=== PATIENT | female | born 1960 | race African-American/Black ===

== ENCOUNTER 2019-04-21 17:05 | Emergency (ER) | payer OTHER ==
[~2019-04-21] VITALS: Ht 172.7 cm; Wt 92.5 kg
[~2019-04-21 17:05] MED LIST: ACET-58 PO; METF500T PO; SIMV20TA1 PO; ZOLP5TAB1 PO
[2019-04-21 17:13] VITALS: BP 125/84
--- NOTE | 2019-04-21 17:13 | NUR ---
PT AMBULATED TO BED WITH MOTHER
--- NOTE | 2019-04-21 17:38 | NUR ---
PT STATED THAT SHE DOES NOT WANT TO BE SEEN MY ER MD. PT LWBS AT THIS TIME.
== END 2019-04-21 17:38 | disposition left against medical advice (07) ==
LOC: MED 17:05
DX: M25.561 Pain in right knee (principal); Z53.21 Procedure and treatment not carried out due to patient leaving prior to being seen by health care provider

== ENCOUNTER 2019-05-04 00:15 | Emergency (ER) | payer OTHER ==
[~2019-05-04] VITALS: Ht 172.7 cm; Wt 92.5 kg
[2019-05-04 00:21] VITALS: BP 159/78
--- NOTE | 2019-05-04 00:21 | NUR ---
TO BED # 02 AMBULATORY
--- NOTE | 2019-05-04 01:02 | NUR ---
58 Y/O F PRESENTS TO ER C/O LEFT LEG PAIN X4 DAYS. PAIN STARTS IN LEFT KNEE AND RADIATES TO LEFT HIP. PAIN LEVEL 10/10, PRESSURE PAIN. PT TOOK GABAPENTIN 300MG 2PM AND TYLENOL AT 7 PM, WITHOUT ANY RELIEF. HOB ELEVATED, BED IN LOWEST POSITION, BED RAIL UP X1. WAITING FOR ERMD TO EVALUATE PT. ALLERGIES: NKA MED HX: ASTHMA
[2019-05-04] MEDS ORDERED: KETOROLAC 60 MG/2 ML VIAL IM ONE (01:10)
[2019-05-04] MEDS ORDERED: DEXAMETHASONE 10 MG/ML VIAL IM ONE (01:10)
--- NOTE | 2019-05-04 01:55 | NUR ---
REPORTS IMPROVED PAIN 7/10 FROM 10/10 WHICH IS TOLERABLE AT THIS TIME. EXPLAINED TO PT THAT SHE WILL BE SENT HOME WITH RX FOR PAIN.
[2019-05-04 02:00] VITALS: BP 148/83
--- NOTE | 2019-05-04 02:00 | NUR ---
Patient discharged with v/s stable. Written and verbal after care instructions given and explained. Patient alert, oriented and verbalized understanding of instructions. Ambulatory with steady gait. All questions addressed prior to discharge. ID band removed. Patient advised to follow up with PMD. Rx of Tramadol, Motrin and Medrol given. Patient educated on indication of medication including possible reaction and side effects. Opportunity to ask questions provided and answered.
== END 2019-05-04 02:00 | disposition home or self-care (01) ==
LOC: MED 00:15
DX: M54.42 Lumbago with sciatica, left side (principal); J44.9 Chronic obstructive pulmonary disease, unspecified; E11.9 Type 2 diabetes mellitus without complications; Z79.899 Other long term (current) drug therapy
CPT/HCPCS: 96372; 99283; J1100; J1885; 99284

== ENCOUNTER 2019-05-22 08:20 | Emergency (ER) | payer OTHER ==
[~2019-05-22] VITALS: Ht 172.7 cm; Wt 88.5 kg
[2019-05-22 08:25] VITALS: BP 137/88
--- NOTE | 2019-05-22 09:15 | NUR ---
Dr. Moreno is evaluating the patient at bedside.
[2019-05-22] MEDS: NACL 0.9% 1,000 ML IV ONE (09:32)
[2019-05-22] MEDS: ONDANSETRON 4 MG/2 ML VIAL IVP ONE (09:37)
[2019-05-22] MEDS: LOPERAMIDE 2 MG CAP PO ONE (09:37)
[2019-05-22] MEDS: KETOROLAC 30 MG/ML VIAL IVP ONE (09:37)
[2019-05-22 09:52] LABS: BASOPHILS % (AUTO) 0.1 % (0.0-2.0); EOSINOPHILS % (AUTO) 0.6 % (0.0-4.0); HEMATOCRIT 42.9 % (36-48); HEMOGLOBIN 14.1 g/dL (12.0-16.0); LYMPHOCYTES # (AUTO) 1.9 K/uL (2.5-16.5); LYMPHOCYTES % (AUTO) 30.1 % (20.5-51.1); MEAN CORPUSCULAR HEMOGLOBIN 27 pg (27-31); MEAN CORPUSCULAR HGB CONC 33 g/dL (33-37); MEAN CORPUSCULAR VOLUME 83.4 fL (80-94); MONOCYTES # (AUTO) 0.6 K/uL (0.8-1.0); MONOCYTES % (AUTO) 9.1 % (1.7-9.3); NEUTROPHILS # (AUTO) 3.8 K/uL (1.8-7.7); NEUTROPHILS % (AUTO) 60.1 % (42.2-75.2); PLATELET COUNT (AUTO) 299 K/uL (140-450); RED BLOOD CELL COUNT(AUTO) 5.15 MIL/uL (4.20-5.40); RED CELL DISTRIBUTION WIDTH 13.7 % (11.6-13.7); WHITE BLOOD COUNT (AUTO) 6.2 K/uL (4.8-10.8)
[2019-05-22 10:09] LABS: ANION GAP 16.2 (8-16); CREATININE 0.7 mg/dL (0.6-1.3); POTASSIUM 3.2 mmol/L (3.5-5.1)
[2019-05-22 10:14] LABS: ALBUMIN 3.6 g/dL (3.4-5.0); TOTAL BILIRUBIN 0.6 mg/dL (0.0-1.0)
[2019-05-22 10:36] VITALS: BP 135/84
[2019-05-22] MEDS: POTASSIUM CHLORIDE 10 MEQ TABER PO ONE (10:37)
--- NOTE | 2019-05-22 10:38 | NUR ---
Patient discharged with v/s stable. Written and verbal after care instructions given and explained. Patient verbalized understanding. Ambulatory with steady gait. All questions addressed prior to discharge. Advised to follow up with PMD.
--- NOTE | 2019-05-22 10:40 | NUR ---
Patient discharged with v/s stable. Written and verbal after care instructions given and explained. Patient alert, oriented and verbalized understanding of instructions. Ambulatory with steady gait. All questions addressed prior to discharge. ID band removed. Patient advised to follow up with PMD. Rx of IMMODIUM/ZOFRAN given. Patient educated on indication of medication including possible reaction and side effects. Opportunity to ask questions provided and answered.
--- NOTE | 2019-05-27 10:22 | NUR ---
Late entry. Confirmed with RN that 0.9 NS IV completed at 1030
== END 2019-05-22 10:38 | disposition home or self-care (01) ==
LOC: MED 08:20
DX: K52.9 Noninfective gastroenteritis and colitis, unspecified (principal); E87.6 Hypokalemia; J45.909 Unspecified asthma, uncomplicated; J44.9 Chronic obstructive pulmonary disease, unspecified; I10 Essential (primary) hypertension; Z79.899 Other long term (current) drug therapy; Z79.82 Long term (current) use of aspirin; R19.7 Diarrhea, unspecified
CPT/HCPCS: 36415; 80053; 85025; 96361; 96374; 96375; 99283; J1885; J2405

== ENCOUNTER 2019-11-28 15:27 | Emergency (ER) | payer OTHER ==
[~2019-11-28] VITALS: Ht 172.7 cm; Wt 86.2 kg
[2019-11-28 15:36] VITALS: BP 174/93
--- NOTE | 2019-11-28 15:48 | NUR ---
PT AMB TO BED 11.
[2019-11-28] MEDS ORDERED: NACL 0.9% 1,000 ML IV SCH (15:53)
[2019-11-28] MEDS ORDERED: ONDANSETRON 4 MG/2 ML VIAL IVP ONE (15:55)
[2019-11-28] MEDS ORDERED: KETOROLAC 30 MG/ML VIAL IVP ONE (15:55)
[2019-11-28 16:16] LABS: BASOPHILS # (AUTO) 0.1 K/uL (0.00-0.22); BASOPHILS % (AUTO) 1.3 % (0.0-2.0); EOSINOPHILS % (AUTO) 0.9 % (0.0-4.0); HEMATOCRIT 43.1 % (36-48); LYMPHOCYTES # (AUTO) 1.4 K/uL (2.5-16.5); MEAN CORPUSCULAR HEMOGLOBIN 28 pg (27-31); MEAN CORPUSCULAR HGB CONC 33 g/dL (33-37); MEAN CORPUSCULAR VOLUME 85.1 fL (80-94); MONOCYTES # (AUTO) 0.3 K/uL (0.8-1.0); MONOCYTES % (AUTO) 6.4 % (1.7-9.3); NEUTROPHILS # (AUTO) 3.3 K/uL (1.8-7.7); NEUTROPHILS % (AUTO) 64.4 % (42.2-75.2); PLATELET COUNT (AUTO) 293 K/uL (140-450); RED BLOOD CELL COUNT(AUTO) 5.06 MIL/uL (4.20-5.40); RED CELL DISTRIBUTION WIDTH 13.7 % (11.6-13.7); WHITE BLOOD COUNT (AUTO) 5.1 K/uL (4.8-10.8)
--- NOTE | 2019-11-28 16:18 | NUR ---
59 Y/O FEMALE C/O LOWER ABD PAIN X4 DAYS + DIARRHEA + NAUSEA. PT STATES SHE HAS BEEN TAKING PEPTO BISMOL, WITH NO RELIEF. DENIES ANY EPISODES OF EMESIS. PT STATES DIARRHEA IS COMPLETELY WATERY. BOWEL SOUNDS NORMOACTIVE IN ALL QUADRANTS, ABD SOFT/NON TENDER/NON DISTENDED. RESP EVEN AND UNLABORED. LUNG SOUNDS CLEAR IN ALL SOLANO. CAP REFILL <3. AAOX4. PT ABLE TO AMBULATE TO BED DENIES PMH NKA
--- NOTE | 2019-11-28 16:21 | NUR ---
PT UNABLE TO PROVIDE URINE AT THIS TIME
--- NOTE | 2019-11-28 16:39 | NUR ---
PT AMBULATED TO BATHROOM TO PROVIDE URINE SAMPLE.
[2019-11-28 16:49] LABS: ANION GAP 13.2 (8-16); CARBON DIOXIDE 28.5 mmol/L (21-32); CREATININE 0.7 mg/dL (0.6-1.3); POTASSIUM 3.7 mmol/L (3.5-5.1)
[2019-11-28 16:54] LABS: ALBUMIN 3.3 g/dL (3.4-5.0); TOTAL BILIRUBIN 0.3 mg/dL (0.0-1.0)
[2019-11-28 17:03] LABS: APPEARANCE,URINE CLEAR (CLEAR); BILIRUBIN,URINE NEGATIVE (NEGATIVE); BLOOD, URINE TRACE-I (NEGATIVE); COLOR,URINE YELLOW (YELLOW); LEUKOCYTE ESTERASE ,URINE NEGATIVE (NEGATIVE); NITRITE, URINE NEGATIVE (NEGATIVE); PH,URINE 6.5 (5.0-9.0); UGLUCOSE NEGATIVE (NEGATIVE)
--- NOTE | 2019-11-28 17:13 | NUR ---
PT RESTING IN BED, AROUSABLE TO VOICE. VSS.
[2019-11-28 17:21] LABS: WBC,URINE 0-5 /HPF (0-5)
[2019-11-28 17:57] VITALS: BP 132/65
--- NOTE | 2019-11-28 17:57 | NUR ---
Patient discharged with v/s stable. Written and verbal after care instructions given and explained. Patient alert, oriented and verbalized understanding of instructions. Ambulatory with steady gait. All questions addressed prior to discharge. ID band removed. Patient advised to follow up with PMD. Rx of BENTYL, CIPRO, SIMETHICONE given. Patient educated on indication of medication including possible reaction and side effects. Opportunity to ask questions provided and answered.
== END 2019-11-28 17:57 | disposition home or self-care (01) ==
LOC: MED 15:27
DX: K52.9 Noninfective gastroenteritis and colitis, unspecified (principal); J45.909 Unspecified asthma, uncomplicated; Z90.710 Acquired absence of both cervix and uterus; Z79.899 Other long term (current) drug therapy
CPT/HCPCS: 36415; 80053; 81001; 82150; 83690; 85025; 96361; 96374; 96375; 99284; J1885; J2405; J7030

== ENCOUNTER 2020-01-15 20:26 | Emergency (ER) | payer OTHER ==
[~2020-01-15] VITALS: Ht 172.7 cm; Wt 94.8 kg
[2020-01-15 20:40] VITALS: BP 132/92
[2020-01-15] MEDS ORDERED: KETOROLAC 30 MG/ML VIAL IVP ONE (21:40)
[2020-01-15] MEDS ORDERED: NACL 0.9% 1,000 ML IV ONE (21:40)
[2020-01-15 21:43] LABS: BASOPHILS % (AUTO) 0.4 % (0.0-2.0); EOSINOPHILS % (AUTO) 0.7 % (0.0-4.0); HEMATOCRIT 44.9 % (36-48); HEMOGLOBIN 14.8 g/dL (12.0-16.0); MEAN CORPUSCULAR HEMOGLOBIN 28 pg (27-31); MEAN CORPUSCULAR HGB CONC 33 g/dL (33-37); MEAN CORPUSCULAR VOLUME 83.9 fL (80-94); MONOCYTES # (AUTO) 0.4 K/uL (0.8-1.0); MONOCYTES % (AUTO) 7.5 % (1.7-9.3); NEUTROPHILS # (AUTO) 2.6 K/uL (1.8-7.7); NEUTROPHILS % (AUTO) 51.4 % (42.2-75.2); PLATELET COUNT (AUTO) 347 K/uL (140-450); RED BLOOD CELL COUNT(AUTO) 5.35 MIL/uL (4.20-5.40); RED CELL DISTRIBUTION WIDTH 13.9 % (11.6-13.7); WHITE BLOOD COUNT (AUTO) 5.1 K/uL (4.8-10.8)
[2020-01-15 21:58] LABS: ALBUMIN 3.9 g/dL (3.4-5.0); ANION GAP 14.4 (8-16); CARBON DIOXIDE 26.9 mmol/L (21-32); CREATININE 0.7 mg/dL (0.6-1.3); POTASSIUM 3.3 mmol/L (3.5-5.1); TOTAL BILIRUBIN 0.4 mg/dL (0.0-1.0)
[2020-01-15 21:59] LABS: APPEARANCE,URINE HAZY (CLEAR); BILIRUBIN,URINE NEGATIVE (NEGATIVE); BLOOD, URINE 1+ (NEGATIVE); COLOR,URINE YELLOW (YELLOW); LEUKOCYTE ESTERASE ,URINE NEGATIVE (NEGATIVE); NITRITE, URINE NEGATIVE (NEGATIVE); UGLUCOSE NEGATIVE (NEGATIVE)
[2020-01-15 22:13] VITALS: BP 136/85
[2020-01-15 22:18] LABS: RBC,URINE 0-5 /HPF (0-5); WBC,URINE 0-5 /HPF (0-5)
== END 2020-01-15 23:08 | disposition home or self-care (01) ==
LOC: MED 20:26
DX: R19.7 Diarrhea, unspecified (principal); F17.200 Nicotine dependence, unspecified, uncomplicated; J45.909 Unspecified asthma, uncomplicated; Z79.899 Other long term (current) drug therapy
CPT/HCPCS: 36415; 74176; 80053; 81001; 83690; 85025; 87086; 96361; 96374; 99284; J1885; J7030

== ENCOUNTER 2020-04-20 15:13 | Emergency (ER) | payer OTHER ==
[~2020-04-20] VITALS: Ht 172.7 cm; Wt 101.7 kg
[2020-04-20 15:18] VITALS: BP 157/96
[2020-04-20] MEDS ORDERED: ASPIRIN 325 MG TAB PO STA (15:40)
[2020-04-20 15:58] LABS: BASOPHILS % (AUTO) 0.5 % (0.0-2.0); EOSINOPHILS # (AUTO) 0.1 K/uL (0-0.4); EOSINOPHILS % (AUTO) 1.7 % (0.0-4.0); HEMATOCRIT 39.6 % (36-48); LYMPHOCYTES # (AUTO) 2.3 K/uL (2.5-16.5); LYMPHOCYTES % (AUTO) 45.7 % (20.5-51.1); MEAN CORPUSCULAR HEMOGLOBIN 28 pg (27-31); MEAN CORPUSCULAR HGB CONC 33 g/dL (33-37); MEAN CORPUSCULAR VOLUME 84.3 fL (80-94); MONOCYTES # (AUTO) 0.5 K/uL (0.8-1.0); MONOCYTES % (AUTO) 9.6 % (1.7-9.3); NEUTROPHILS # (AUTO) 2.1 K/uL (1.8-7.7); NEUTROPHILS % (AUTO) 42.5 % (42.2-75.2); PLATELET COUNT (AUTO) 270 K/uL (140-450); RED CELL DISTRIBUTION WIDTH 13.9 % (11.6-13.7)
--- NOTE | 2020-04-20 16:00 | NUR ---
C/O LLE PAIN 10/10 TIGHT & THROBBING X4 DAYS. PT REPORTS SWELLING TO EXTREMITY WELL. DENIES NUMBNESS/TINGLING. CAP REFIL <3 SECONDS. PT AMBULATORY WITH ASSISTIVE DEVICE. NO REDNESS OR WARMTH TO LLE NOTED. BE IN LOW POSITION, SIDE RAIL UP X1.
[2020-04-20 16:10] LABS: ALBUMIN 3.3 g/dL (3.4-5.0); ANION GAP 11.9 (8-16); CARBON DIOXIDE 31.1 mmol/L (21-32); CREATININE 0.8 mg/dL (0.6-1.3); TOTAL BILIRUBIN 0.2 mg/dL (0.0-1.0)
[2020-04-20 16:21] LABS: PROTHROMBIN TIME 9.8 secs (10.8-13.4)
[2020-04-20] MEDS ORDERED: LIDOCAINE MPF 1% 10 MG/ML VIAL INJ STA (16:57)
[2020-04-20 17:35] VITALS: BP 157/96
--- NOTE | 2020-04-20 17:36 | NUR ---
Patient discharged with v/s stable. Written and verbal after care instructions given and explained. Patient alert, oriented and verbalized understanding of instructions. Ambulatory with steady gait. All questions addressed prior to discharge. ID band removed. Patient advised to follow up with PMD.
== END 2020-04-20 17:36 | disposition home or self-care (01) ==
LOC: MED 15:13
DX: M25.561 Pain in right knee (principal); J45.909 Unspecified asthma, uncomplicated
CPT/HCPCS: 20610; 36415; 73562; 80053; 85025; 85610; 93971; 99285; J2001; Q0092

== ENCOUNTER 2020-09-12 15:45 | Emergency (ER) | payer OTHER ==
[~2020-09-12] VITALS: Ht 162.6 cm; Wt 112.7 kg
[2020-09-12 15:55] VITALS: BP 140/96
--- NOTE | 2020-09-12 15:57 | NUR ---
C/O 10/10 THOM LEGS PAIN X 1 WEEK. DENIES TRAUMA.PMH: ARTHRITIS, HYSTERECTOMY.DENIES TRAUMA/INJURY.
--- NOTE | 2020-09-12 16:00 | NUR ---
PT AMB TO BED 11.
[2020-09-12] MEDS ORDERED: DEXAMETHASONE 10 MG/ML VIAL IM ONE (16:50)
[2020-09-12] MEDS ORDERED: KETOROLAC 60 MG/2 ML VIAL IM ONE (16:50)
[2020-09-12] MEDS ORDERED: NAPR-1847 PO (16:51)
[2020-09-12 17:05] VITALS: BP 124/87
== END 2020-09-12 17:05 | disposition home or self-care (01) ==
LOC: MED 15:45
DX: M54.31 Sciatica, right side (principal); M54.32 Sciatica, left side; J45.909 Unspecified asthma, uncomplicated; Z79.899 Other long term (current) drug therapy
CPT/HCPCS: 96372; 99284; J1100; J1885

== ENCOUNTER → 2022-05-09 | Emergency (ER) | payer OTHER ==
[~2022-05-09] VITALS: Ht 170.2 cm; Wt 116.6 kg
[~2022-05-09] MED LIST changes: -ACET-58 PO; +KETOROLAC 60 MG/2 ML VIAL IM ONE; +LEVO-481 PO; +LIDOCAINE MPF 1% 5 ML ONE; +METF-346 PO; -METF500T PO; +NAPR-1847 PO; +NAPR-54 PO; +SIMV-372 PO; -SIMV20TA1 PO; +[UNRECOGNIZED DRUG - CODE] PO; +cefTRIAXone 1,000 MG VIAL ONE; +cefTRIAXone 1,000 MG in LIDOCAINE MPF 1% 2.1 ML IM ONE
[2022-05-09 20:43] VITALS: BP 103/66
--- NOTE | 2022-05-09 20:45 | NUR ---
Patient taken to bed 4.
--- NOTE | 2022-05-09 20:50 | NUR ---
C/O nose pain x 3 days. Patient reported, had nose pain, no nose bleeding, no cough, no congestion, no fever. PMHx: COPD, Sleep apnea, Arthritis, Sciatica
--- NOTE | 2022-05-09 23:10 | NUR ---
Patient discharged with v/s stable. Written and verbal after care instructions given and explained. Patient alert, oriented and verbalized understanding of instructions. Ambulatory with steady gait. All questions addressed prior to discharge. ID band removed. Patient advised to follow up with PMD. Rx of NAPROSYN AND LEVOFLOXACIN given. Patient educated on indication of medication including possible reaction and side effects. Opportunity to ask questions provided and answered.
== END | disposition home or self-care (01) ==
LOC: MED 20:10
DX: J01.00 Acute maxillary sinusitis, unspecified (principal); J45.909 Unspecified asthma, uncomplicated; I10 Essential (primary) hypertension; F17.210 Nicotine dependence, cigarettes, uncomplicated; Z71.6 Tobacco abuse counseling; Z90.710 Acquired absence of both cervix and uterus; Z79.899 Other long term (current) drug therapy; Z79.1 Long term (current) use of non-steroidal anti-inflammatories (NSAID); Z79.2 Long term (current) use of antibiotics
CPT/HCPCS: 96372; 99284; J0696; J1885; J2001

== ENCOUNTER 2022-08-09 20:08 | Emergency (ER) | payer OTHER ==
[~2022-08-09] VITALS: Ht 170.2 cm; Wt 117.9 kg
[2022-08-09 20:08] VITALS: BP 119/94
[~2022-08-09 20:08] MED LIST changes: -KETOROLAC 60 MG/2 ML VIAL IM ONE; -LIDOCAINE MPF 1% 5 ML ONE; -cefTRIAXone 1,000 MG VIAL ONE; -cefTRIAXone 1,000 MG in LIDOCAINE MPF 1% 2.1 ML IM ONE
--- NOTE | 2022-08-09 20:14 | NUR ---
PT BIBA ER BED 8
[2022-08-09] MEDS ORDERED: MORPHINE SULFATE 4 MG/ML SYR IVP ONE (20:35)
[2022-08-09] MEDS ORDERED: NACL 0.9% 1,000 ML IV ONE ×2 (20:35→22:20)
--- NOTE | 2022-08-09 20:46 | NUR ---
Patient being evaluated by physician at bedside.
--- NOTE | 2022-08-09 20:46 | NUR ---
PT IS HERE FOR EVALUATION OF ABDOMINAL PAIN. PT SOMEHOW CONFUSED BUT STILL BE ABLE FOLLOW COMMAND.
[2022-08-09 20:50] LABS: BASOPHILS % (AUTO) 0.2 % (0.0-2.0); EOSINOPHILS # (AUTO) 0.2 K/uL (0-0.4); EOSINOPHILS % (AUTO) 1.3 % (0.0-4.0); HEMATOCRIT 44.1 % (36-48); HEMOGLOBIN 14.3 g/dL (12.0-16.0); LYMPHOCYTES # (AUTO) 2.5 K/uL (2.5-16.5); LYMPHOCYTES % (AUTO) 21.9 % (20.5-51.1); MEAN CORPUSCULAR HEMOGLOBIN 26 pg (27-31); MEAN CORPUSCULAR HGB CONC 32 g/dL (33-37); MONOCYTES # (AUTO) 0.5 K/uL (0.8-1.0); MONOCYTES % (AUTO) 4.2 % (1.7-9.3); NEUTROPHILS # (AUTO) 8.3 K/uL (1.8-7.7); NEUTROPHILS % (AUTO) 72.4 % (42.2-75.2); PLATELET COUNT (AUTO) 320 K/uL (140-450); RED BLOOD CELL COUNT(AUTO) 5.45 MIL/uL (4.20-5.40); RED CELL DISTRIBUTION WIDTH 15.7 % (11.6-13.7); WHITE BLOOD COUNT (AUTO) 11.5 K/uL (4.8-10.8)
--- NOTE | 2022-08-09 21:00 | NUR ---
PT IS ROOM AIR. PT IS INCONTINCE SINCE THE BED IS FULL OF URINE.
--- NOTE | 2022-08-09 21:05 | NUR ---
PT IS GETTING CLEANED UP AND IV WAS PULLED OUT SOMEHOW.
[2022-08-09 21:07] LABS: ALBUMIN 4.1 g/dL (3.4-5.0); ANION GAP 11.2 (8-16); CARBON DIOXIDE 32.1 mmol/L (21-32); CREATININE 0.8 mg/dL (0.6-1.3); POTASSIUM 3.3 mmol/L (3.5-5.1); TOTAL BILIRUBIN 0.3 mg/dL (0.0-1.0)
[2022-08-09 22:04] LABS: BILIRUBIN,URINE 3+ (NEGATIVE); BLOOD, URINE 2+ (NEGATIVE); COLOR,URINE YELLOW (YELLOW); LEUKOCYTE ESTERASE ,URINE 3+ (NEGATIVE); NITRITE, URINE NEGATIVE (NEGATIVE); PH,URINE 8.5 (5.0-9.0); UGLUCOSE TRACE (NEGATIVE)
[2022-08-09 22:07] LABS: APPEARANCE,URINE CLOUDY (CLEAR)
[2022-08-09] MEDS ORDERED: cefTRIAXone 2,000 MG in DEXTROSE 5% 100 ML IV ONE (22:20)
[2022-08-09 22:32] LABS: WBC,URINE 0-5 /HPF (0-5); YEAST,URINE Few /HPF (None Seen)
--- NOTE | 2022-08-09 22:50 | NUR ---
NURSE PUT ANOTHER iV FOR HER 20 GAUGE LEFT AC.
[2022-08-09] MEDS ORDERED: cefTRIAXone 2,000 MG VIAL ONE (23:16)
[2022-08-10] MEDS ORDERED: CEPH-588 PO (01:57)
[2022-08-10] MEDS ORDERED: IBUP-2213 PO (01:57)
--- NOTE | 2022-08-10 02:30 | NUR ---
Patient does not wish to proceed with medical care recommended by Linda. Patient given information related to possible complications, up to and including , which could occur as a result of leaving hospital at this time. Patient verbalizes understanding of risks involved leaving against medical advice. Patient has signed AMA form. pt left with her belonging and being picked u by her .
[2022-08-10 03:00] VITALS: BP 119/94
--- NOTE | 2022-08-12 08:01 | NUR ---
CONFIRMED WITH NURSE, NS INFUSION END TIME IS 2250 08/09/22 AND 0110 08/10/22. ROCEPHIN END TIME IS 0110 08/10/22
== END 2022-08-10 02:30 | disposition left against medical advice (07) ==
LOC: MED 20:08
DX: R19.7 Diarrhea, unspecified (principal); D72.829 Elevated white blood cell count, unspecified; E87.6 Hypokalemia; E11.9 Type 2 diabetes mellitus without complications; I10 Essential (primary) hypertension; E66.01 Morbid (severe) obesity due to excess calories; J44.9 Chronic obstructive pulmonary disease, unspecified; Z79.899 Other long term (current) drug therapy; Z79.1 Long term (current) use of non-steroidal anti-inflammatories (NSAID); Z79.2 Long term (current) use of antibiotics
CPT/HCPCS: 36415; 74176; 80053; 81001; 83605; 83690; 85025; 87040; 96361; 96365; 96375; 99285; J0696; J2270; J7030; 87086

== ENCOUNTER 2022-09-09 11:12 | Emergency (ER) | payer OTHER ==
[~2022-09-09] VITALS: Ht 170.2 cm; Wt 117.9 kg
[~2022-09-09 11:12] MED LIST changes: +CEPH-588 PO; +IBUP-2213 PO
[2022-09-09 11:57] VITALS: BP 125/69
[2022-09-09 13:23] LABS: APPEARANCE,URINE CLEAR (CLEAR); BILIRUBIN,URINE NEGATIVE (NEGATIVE); BLOOD, URINE TRACE-I (NEGATIVE); COLOR,URINE YELLOW (YELLOW); LEUKOCYTE ESTERASE ,URINE NEGATIVE (NEGATIVE); NITRITE, URINE NEGATIVE (NEGATIVE); PH,URINE 6.5 (5.0-9.0); UGLUCOSE NEGATIVE (NEGATIVE)
[2022-09-09] MEDS ORDERED: AMOX1TAB8 PO (14:13)
[2022-09-09] MEDS ORDERED: PYR100 PO (14:13)
--- NOTE | 2022-09-09 14:21 | NUR ---
Patient discharged with v/s stable. Written and verbal after care instructions given and explained. Patient alert, oriented and verbalized understanding of instructions. Ambulatory with steady gait. All questions addressed prior to discharge. ID band removed. Patient advised to follow up with PMD. Rx of AUGMENTIN, PYRIDIUM given. Patient educated on indication of medication including possible reaction and side effects. Opportunity to ask questions provided and answered.
--- NOTE | 2022-09-09 14:21 | NUR ---
ASSUMED CARE FOR DC INSTRUCTIONS.
[2022-09-09 14:22] VITALS: BP 125/69
== END 2022-09-09 14:22 | disposition home or self-care (01) ==
LOC: MED 11:12
DX: R30.0 Dysuria (principal); R10.30 Lower abdominal pain, unspecified; R35.0 Frequency of micturition; J45.909 Unspecified asthma, uncomplicated; J44.9 Chronic obstructive pulmonary disease, unspecified; I10 Essential (primary) hypertension; F17.210 Nicotine dependence, cigarettes, uncomplicated; Z79.899 Other long term (current) drug therapy
CPT/HCPCS: 81003; 87086; 99283

== ENCOUNTER 2022-11-29 22:41 | Emergency (ER) | payer OTHER ==
[~2022-11-29] VITALS: Ht 172.7 cm; Wt 117.9 kg
[~2022-11-29 22:41] MED LIST changes: +AMOX1TAB8 PO; +PYR100 PO
[2022-11-29 22:45] VITALS: BP 117/75
--- NOTE | 2022-11-29 23:00 | NUR ---
Patient ambulated to bed 11.
[2022-11-29 23:09] VITALS: BP 110/68
--- NOTE | 2022-11-29 23:36 | NUR ---
2333- Patient being evaluated by TINO at bedside.
[2022-11-29] MEDS ORDERED: predniSONE 20 MG TAB PO ONE (23:50)
[2022-11-29] MEDS ORDERED: TOBR5SOL38 OP (23:52)
[2022-11-29] MEDS ORDERED: PRED20TA5 PO (23:52)
--- NOTE | 2022-11-30 00:05 | NUR ---
Patient discharged with v/s stable. Written and verbal after care instructions given and explained. Patient alert, oriented and verbalized understanding of instructions. Ambulatory with steady gait. All questions addressed prior to discharge. ID band removed. Patient advised to follow up with PMD. Rx of Prednisone and Tobramycin given. Patient educated on indication of medication including possible reaction and side effects. Opportunity to ask questions provided and answered.
== END 2022-11-30 00:05 | disposition home or self-care (01) ==
LOC: MED 22:41
DX: H10.9 Unspecified conjunctivitis (principal); J45.909 Unspecified asthma, uncomplicated; J44.9 Chronic obstructive pulmonary disease, unspecified; I10 Essential (primary) hypertension; Z79.899 Other long term (current) drug therapy; Z90.710 Acquired absence of both cervix and uterus
CPT/HCPCS: 99283; J7512

== ENCOUNTER 2023-12-13 21:37 | Emergency (ER) | payer OTHER ==
[~2023-12-13] VITALS: Ht 170.2 cm; Wt 112.0 kg
[2023-12-13] MEDS: KETOROLAC 30 MG/ML VIAL IVP ONE (00:50)
[2023-12-13] MEDS: MORPHINE SULFATE 4 MG/ML SYR IVP ONE (00:50)
[~2023-12-13 21:37] MED LIST changes: +NAPR-337 PO; -NAPR-54 PO; +PRED20TA5 PO; +TOBR5SOL38 OP
[2023-12-13 22:10] VITALS: BP 143/71; PULSE 79; RESP 17; TEMP 97.8; O2SAT 97
[2023-12-14] MEDS ORDERED: PRED10TA5 PO (03:14)
[2023-12-14] MEDS ORDERED: GABA600T11 PO (03:14)
[2023-12-14 03:20] VITALS: BP 121/72; PULSE 66; RESP 18; TEMP 98.6; O2SAT 96
== END 2023-12-14 03:20 | disposition home or self-care (01) ==
LOC: MED 21:37
DX: M54.42 Lumbago with sciatica, left side (principal); M54.41 Lumbago with sciatica, right side; J44.9 Chronic obstructive pulmonary disease, unspecified; I10 Essential (primary) hypertension; Z79.84 Long term (current) use of oral hypoglycemic drugs; Z79.1 Long term (current) use of non-steroidal anti-inflammatories (NSAID); Z79.2 Long term (current) use of antibiotics; Z79.899 Other long term (current) drug therapy
CPT/HCPCS: 72131; 96374; 96375; 99285; J1885; J2270

== ENCOUNTER 2024-01-07 21:41 | Emergency (ER) | payer OTHER ==
[~2024-01-07] VITALS: Ht 172.7 cm; Wt 112.0 kg
[~2024-01-07 21:41] MED LIST changes: +GABA600T11 PO; +PRED10TA5 PO
[2024-01-07 21:48] VITALS: BP 148/92; PULSE 84; RESP 16; TEMP 97.2; O2SAT 97
[2024-01-07 23:36] LABS: BASOPHILS # (AUTO) 0.1 K/uL (0.00-0.22); BASOPHILS % (AUTO) 0.9 % (0.0-2.0); EOSINOPHILS # (AUTO) 0.1 K/uL (0-0.4); EOSINOPHILS % (AUTO) 1.2 % (0.0-4.0); HEMOGLOBIN 12.4 g/dL (12.0-16.0); LYMPHOCYTES % (AUTO) 37.4 % (20.5-51.1); MEAN CORPUSCULAR HEMOGLOBIN 27 pg (27-31); MEAN CORPUSCULAR HGB CONC 33 g/dL (33-37); MEAN CORPUSCULAR VOLUME 82.3 fL (80-94); MONOCYTES # (AUTO) 0.6 K/uL (0.8-1.0); MONOCYTES % (AUTO) 6.9 % (1.7-9.3); NEUTROPHILS # (AUTO) 4.3 K/uL (1.8-7.7); NEUTROPHILS % (AUTO) 53.6 % (42.2-75.2); PLATELET COUNT (AUTO) 280 K/uL (140-450); RED BLOOD CELL COUNT(AUTO) 4.62 MIL/uL (4.20-5.40); RED CELL DISTRIBUTION WIDTH 15.3 % (11.6-13.7)
[2024-01-07] MEDS: KETOROLAC 30 MG/ML VIAL IM ONE (23:45)
[2024-01-07] MEDS: MORPHINE SULFATE 4 MG/ML SYR IM ONE (23:46)
[2024-01-07 23:49] LABS: ANION GAP 9.9 (8-16); CALCIUM 9.1 mg/dL (8.5-10.1); CARBON DIOXIDE 31.8 mmol/L (21-32); CREATININE 0.8 mg/dL (0.6-1.3); POTASSIUM 3.7 mmol/L (3.5-5.1)
[2024-01-07 23:53] LABS: ALBUMIN 2.9 g/dL (3.4-5.0); BILIRUBIN,DIRECT 0.1 mg/dL (0.0-0.3); TOTAL BILIRUBIN 0.2 mg/dL (0.0-1.0); TOTAL PROTEIN, SERUM 6.8 g/dL (6.4-8.2)
[2024-01-08 00:11] LABS: APPEARANCE,URINE CLEAR (CLEAR); BILIRUBIN,URINE NEGATIVE (NEGATIVE); BLOOD, URINE NEGATIVE (NEGATIVE); COLOR,URINE YELLOW (YELLOW); LEUKOCYTE ESTERASE ,URINE NEGATIVE (NEGATIVE); NITRITE, URINE NEGATIVE (NEGATIVE); PROTEIN,URINE NEGATIVE (NEGATIVE); UGLUCOSE NEGATIVE (NEGATIVE); UROBILINOGEN,URINE 0.2 EU/dL (0.2 - 1)
[2024-01-08] MEDS ORDERED: ACET-9527 PO (00:52)
[2024-01-08] MEDS: ONDANSETRON 4 MG ODT PO ONE (01:12)
[2024-01-08] MEDS ORDERED: HYDR-5071 PO (01:15)
[2024-01-08] MEDS: HYDROcodone/APAP 5/325 MG 1 TAB TAB PO ONE (01:21)
[2024-01-08] MEDS ORDERED: ONDA-188 SL (01:23)
[2024-01-08 01:29] VITALS: BP 148/92; PULSE 84; RESP 16; TEMP 97.2; O2SAT 97
== END 2024-01-08 01:29 | disposition home or self-care (01) ==
LOC: MED 21:41
DX: M54.50 Low back pain, unspecified (principal); R10.30 Lower abdominal pain, unspecified; Z87.39 Personal history of other diseases of the musculoskeletal system and connective tissue; J44.9 Chronic obstructive pulmonary disease, unspecified; I10 Essential (primary) hypertension; Z79.899 Other long term (current) drug therapy
CPT/HCPCS: 36415; 74176; 80048; 80076; 81003; 82150; 83690; 85025; 96372; 99285; J1885; J2270; Q0162